=== PATIENT | female | born 1965 | race Caucasian/White ===

== ENCOUNTER 2022-10-23 09:38 | Outpatient (CLI) | payer BC, SELFPAY | END 2022-10-23 09:39 | disposition home or self-care (01) | LOC: AMB 10-26 10:33 | PROVIDERS: PCP Family Medicine; Visit Provider Emergency Medicine Emergency Medical Services | DX: S09.90XA Unspecified injury of head, initial encounter (principal); W00.2XXA Other fall from one level to another due to ice and snow, initial encounter; Y92.512 Supermarket, store or market as the place of occurrence of the external cause | CPT/HCPCS: A0425; A0427 ==

== ENCOUNTER 2022-10-23 10:07 | Emergency (ER) | payer BC, SELFPAY ==
[2022-10-23] VITALS (13 sets, daily range): BP systolic 137–169; BP diastolic 73–91; PULSE 79–89; RESP 16; TEMP 36.6; O2SAT 92–96
--- NOTE | 2022-10-23 10:13 | CRLHL7_ITS ---
For Patients: As a result of the Century Cures Act, medical imaging exams and procedure reports are released immediately into your electronic medical record. You may view this report before your referring provider. If you have questions, please contact your health care provider. INDICATION: Trauma. Fall. The patient hit the back of her head. Left occipital hematoma. TECHNIQUE: CT of the cervical spine with coronal and sagittal reconstructed images. Bone and soft tissue algorithms utilized. FINDINGS: No evidence for cervical spine fracture or acute malalignment. No prevertebral soft tissue swelling. Minor loss of the cervical lordosis is likely more positional than real. The temporomandibular joints are symmetric and intact. No significant degenerative or erosive change. Clear included lung apices. IMPRESSION: Mild loss of cervical lordosis likely positional. No acute fracture. No prevertebral hematomas. Please note that all CT scans at this facility use dose modulation, iterative reconstruction, and/or weight-based dosing when appropriate to reduce radiation dose to as low as reasonably achievable. Dictated by Tariq Meyer MD @ 10/23/2022 11:14:30 AM (Electronically Signed)
--- NOTE | 2022-10-23 10:13 | CRLHL7_ITS ---
For Patients: As a result of the Century Cures Act, medical imaging exams and procedure reports are released immediately into your electronic medical record. You may view this report before your referring provider. If you have questions, please contact your health care provider. INDICATION: Trauma. Fall. The patient hit the back of her head. TECHNIQUE: Noncontrast head CT. FINDINGS: No acute intracranial hemorrhage or hydrocephalus. No mass effect or shift of midline structures. No evidence for ischemic change or infarction. The grigsby white matter differentiation is preserved. The included calvarium and skull base are negative for fractures. Soft tissue hematoma along the posterior superior left occiput. The included paranasal sinuses and mastoid air cells are clear. The temporomandibular joints are symmetric and intact. The internal auditory canals are within normal limits. IMPRESSION: Posterior superior left occipital soft tissue hematoma. No calvarial or skullbase fracture. No intracranial hemorrhage identified. Please note that all CT scans at this facility use dose modulation, iterative reconstruction, and/or weight-based dosing when appropriate to reduce radiation dose to as low as reasonably achievable. Dictated by Tariq Meyer MD @ 10/23/2022 11:09:06 AM (Electronically Signed)
--- NOTE | 2022-10-23 10:13 | ED_ITS ---
HPI - General Adult General Chief complaint: Fall/Minor Trauma Stated complaint: Fall head trauma Time Seen by Provider: 10/23/22 10:13 History of Present Illness HPI narrative: This 57-year-old female comes in by ambulance because of a fall that occurred just prior to arrival. A trauma team activation was initiated. The patient was coming out of a store and slipped on ice falling backwards and hitting her head. She states that she did not have loss of consciousness. She does not report any other injury. She did not get up after this fall and comes in by ambulance. She is not showing any sign of neurologic deficit. She is not on any blood thinner medications. She does report a headache that is 7/10 in severity. She did receive fentanyl intravenously EN route here. Related Data Home Medications Medication Instructions Recorded Confirmed glipizide 10 mg tablet 10 mg PO BID 10/23/22 10/23/22 hydroxyzine HCl 25 mg tablet 25 mg PO PRN 10/23/22 levothyroxine 100 mcg tablet 100 mcg PO DAILY 10/23/22 10/23/22 metformin 1,000 mg tablet 1,000 mg PO BID 10/23/22 10/23/22 olopatadine 0.2 % eye drops drp 10/23/22 rosuvastatin 10 mg tablet 10 mg PO DAILY 10/23/22 10/23/22 semaglutide 0.25 mg or 0.5 mg (2 0.5 mg subcut .weekly 10/23/22 10/23/22 mg/1.5 mL) subcutaneous pen injector (Ozempic) Previous Rx's Medication Instructions Recorded ondansetron HCl 4 mg tablet 4 mg PO Q6H #10 tabs 10/23/22 tramadol 50 mg tablet 50 mg PO Q6H PRN pain #15 tabs 10/23/22 Allergies Allergy/AdvReac Type Severity Reaction Status Date / Time acetaminophen [From Vicodin] Allergy Mild Verified 10/23/22 10:20 hydrocodone [From Vicodin] Allergy Mild Verified 10/23/22 10:20 Sulfa (Sulfonamide Allergy Mild Verified 10/23/22 10:20 Antibiotics) tioconazole Allergy Mild Verified 10/23/22 10:20 [From Monistat 1 (tioconazole)] Review of Systems Status of ROS: Reports: 10 or more systems reviewed and unremarkable except as noted in History and below Narrative: Constitutional: No fevers, no weight gain or loss. Eyes: No discharge. No vision changes. HENT: No congestion, no sore throat, no ear pain. She reports a headache. Cardiovascular: No chest pain, no palpitations. Respiratory: No shortness of breath, no wheezes, no cough. Gastrointestinal: No abdominal pain, no vomiting, no diarrhea. Genitourinary: No dysuria, no hematuria. Musculoskeletal: Normal range of motion. Skin: No rashes, no pruritis. Neurological: No dizziness, weakness, sensory change, speech change. Endo/Heme/Allergies: No bruising or bleeding. No polydipsia. Pysch: no suicidality, no anxiety, no insomnia. All other systems reviewed and are negative. PFSH PFS Social History Smoking Status: Never smoker Do you use any of these nicotine containing products: None Second hand tobacco smoke exposure: No How often do you have a drink containing alcohol: never AUDIT-C Alcohol total score: 0 Non-prescribed substance use: denies use Exam Narrative: Exam Narrative: Constitutional: Well-developed, well-nourished, no acute distress. HEENT: C-collar is in place. Occipital contusion with hematoma. No sign of bleeding. Neck: Normal range of motion. Nontender. Supple. Heart: Regular. No murmurs. Normal rate. Intact distal pulses. Lungs: Clear to auscultation. No chest discomfort. No wheezes, rhonchi, or rales. Abdomen: Normal bowel sounds. Nontender. No rebound tenderness. Genitalia: Deferred. Back: No midline tenderness. Normal range of motion. Extremities: Normal range of motion. No injury. Skin: Intact. No rash. Warm. No erythema or pallor. Neurologic: No altered sensation. No weakness. Alert and oriented. Psychiatric: No suicidality. No anxiety or depression. No insomnia. Nursing notes and vitals signs are reviewed. Const: Vital Signs, click to edit/add: Vital Signs - 24 hr 10/23/22 10:14 10/23/22 10:42 10/23/22 10:44 Temperature 97.9 F Pulse Rate 86 80 Pulse Rate [Left P ulse Oximeter] 85 Respiratory Rate 16 Blood Pressure 150/84 H Blood Pressure [Le ft Upper Arm] 169/91 H Pulse Oximetry 96 95 96 Oxygen Delivery Me thod Room Air 10/23/22 10:45 10/23/22 10:46 10/23/22 10:47 Temperature Pulse Rate 83 81 83 Pulse Rate [Left P ulse Oximeter] Respiratory Rate Blood Pressure 145/80 H Blood Pressure [Le ft Upper Arm] Pulse Oximetry 95 95 94 Oxygen Delivery Me thod 10/23/22 11:00 10/23/22 11:01 10/23/22 11:15 Temperature Pulse Rate 79 83 88 Pulse Rate [Left P ulse Oximeter] Respiratory Rate Blood Pressure 137/73 Blood Pressure [Le ft Upper Arm] Pulse Oximetry 92 92 94 Oxygen Delivery Me thod 10/23/22 11:16 10/23/22 11:30 10/23/22 11:31 Temperature Pulse Rate 80 82 89 Pulse Rate [Left P ulse Oximeter] Respiratory Rate Blood Pressure 149/80 H 150/75 H Blood Pressure [Le ft Upper Arm] Pulse Oximetry 94 96 94 Oxygen Delivery Me thod Course Vital Signs Vital signs: Initial Vital Signs Temperature 97.9 F 10/23/22 10:14 Temperature Source Temporal Artery Scan 10/23/22 10:14 Pulse Rate 85 10/23/22 10:14 Pulse Rhythm 10/23/22 10:14 Pulse Strength 3+ Normal 10/23/22 10:14 Respiratory Rate 16 10/23/22 10:14 Blood Pressure 169/91 H 10/23/22 10:14 Blood Pressure Mean 117 10/23/22 10:14 Blood Pressure Position Supine 10/23/22 10:14 Pulse Oximetry 96 10/23/22 10:14 Oxygen Delivery Method 10/23/22 10:14 Vital Signs Temperature 97.9 F 10/23/22 10:14 Pulse Rate 85 10/23/22 10:14 Respiratory Rate 16 10/23/22 10:14 Blood Pressure 169/91 H 10/23/22 10:14 Pulse Oximetry 96 10/23/22 10:14 Oxygen Delivery Method 10/23/22 10:14 Temperature 97.9 F 10/23/22 10:14 Pulse Rate 89 10/23/22 11:31 Respiratory Rate 16 10/23/22 10:14 Blood Pressure 150/75 H 10/23/22 11:31 Pulse Oximetry 94 10/23/22 11:31 Oxygen Delivery Method 10/23/22 10:14 Medical Decision Making MDM Narrative Medical decision making narrative: Primary Survey: Vital Signs are within normal limits. Airway: Open. Breathing: Easy. Circulation: no obvious bleeding; normal capillary refill. Disability: GCS is 15. Normal pupillary response and motor movements. Secondary Survey: Head: Nonfluctuant hematoma in the occipital region without evidence of abrasion or laceration. Neck: No midline tenderness. ROM intact. Chest: Non tender. No external signs of trauma. Abdomen: Non tender. No rebound tenderness. Normal bowel sounds. Pelvis/Genitals: No tenderness to A/P and lateral stress. No blood at the urethral meatus. Extremities: Atraumatic. Back: No midline tenderness. No sign of injury. Primary and Secondary surveys are completed. The patient's GCS is 15. This patient was able to get up and ambulate and is okay to be discharged home. She did receive a prescription for [place] and Zofran. Imaging Data CT Cervical Spine: Radiologist's impression: Mild loss of cervical lordosis likely positional. No acute fracture. No prevertebral hematomas. CT scan - head: Radiologist's impression: Posterior superior left occipital soft tissue hematoma. No calvarial or skullbase fracture. No intracranial hemorrhage identified. Discharge Plan Discharge Clinical Impression: Closed head injury Patient Disposition: Home, Self-Care Additional Instructions: Use medication as needed and directed. Increase activity as tolerated. Follow up with MD or return if worsening. Prescriptions: New ondansetron HCl 4 mg tablet 4 mg PO Q6H Qty: 10 0RF tramadol 50 mg tablet 50 mg PO Q6H PRN (Reason: pain) Qty: 15 0RF No Action glipizide 10 mg tablet 10 mg PO BID Label Comments: TAKE ONE TABLET BY MOUTH TWICE DAILY BEFORE MEALS hydroxyzine HCl 25 mg tablet 25 mg PO PRN levothyroxine 100 mcg tablet 100 mcg PO DAILY Label Comments: TAKE ONE TABLET BY MOUTH ONE TIME DAILY BEFORE BREAKFAST metformin 1,000 mg tablet 1,000 mg PO BID Label Comments: TAKE 1.5 TABLETS BY MOUTH IN THE MORNING, AND 1 TABLET IN THE EVENING. olopatadine 0.2 % drops rosuvastatin 10 mg tablet 10 mg PO DAILY Label Comments: TAKE ONE TABLET BY MOUTH ONE TIME DAILY AT BEDTIME Ozempic 0.25 mg or 0.5 mg(2 mg/1.5 mL) pen injector 0.5 mg SUBCUT .weekly Label Comments: Inject 0.5mg BY subcutaneous route once weekly. Follow Up/Referrals: Rody Marinelli MD [Primary Care Provider] - Stand Alone Forms: [employer] Info Instructions
--- NOTE | 2022-10-23 11:33 | ED.NURSE ---
C-collar removed by
--- NOTE | 2022-10-23 11:45 | ED.NURSE ---
Pt ambulatory to the BR w/ a steady gait.
== END 2022-10-23 11:56 | disposition home or self-care (01) ==
PROVIDERS: Emergency Provider Emergency Medicine Emergency Medical Services; PCP Family Medicine
DX: S09.90XA Unspecified injury of head, initial encounter (principal); W00.9XXA Unspecified fall due to ice and snow, initial encounter
CPT/HCPCS: 70450; 72125; 99284; 99285; 99291; G0390